=== PATIENT | male | born 2000 ===

== ENCOUNTER 2024-08-11 19:23 | Emergency (ER) | payer OTHER, SELFPAY ==
[2024-08-11 19:29] VITALS: BP 133/60; PULSE 106; RESP 18; TEMP 37.6; O2SAT 100; BMI 17.9
--- NOTE | 2024-08-11 19:34 | DI.RAD.S_ITS ---
PROCEDURE: XR KNEE RT 3V INDICATIONS: fall/pain/swelling/redness TECHNIQUE: 3 views of the knee were acquired. COMPARISON: None. FINDINGS: Bones: No fractures or dislocations. No suspicious bony lesions. Soft tissues: No suprapatellar joint effusion. There is a moderate amount of soft tissue swelling anterior to the patella and patellar tendon likely representing prepatellar bursitis. There is also a tiny punctate density adjacent to the lateral aspect of the patellofemoral compartment on the sunrise view which may represent artifact versus possible radiopaque soft tissue foreign body. No suspicious soft tissue calcifications. IMPRESSION: Right knee without acute fracture or dislocation. Moderate anterior right knee soft tissue swelling suggestive of prepatellar bursitis. Possible tiny punctate soft tissue radiopaque foreign body noted adjacent to the lateral margin of the lateral patellofemoral compartment. This is best seen on the sunrise view. Dictated by: Melvin Mazariegos M.D. on 08/11/2024 at 20:37 Approved by: Melvin Mazariegos M.D. on 08/11/2024 at 20:39
[2024-08-11] MEDS: IBUPROFEN 400 MG TABLET PO (19:51)
[2024-08-11] MEDS: ACETAMINOPHEN 325 MG TABLET PO (19:51)
[2024-08-11 20:07] LABS: Add Manual Diff / Slide Review NO; Basophils Absolute Auto 100 /uL (0-100); Basophils Percent Auto 0.4 % (0-2); Eosinophils Absolute Auto 100 /uL (0-450); Eosinophils Percent Auto 0.5 % (2-4); Hematocrit 42.9 % (41-53); Hemoglobin 14.8 g/dL (13.5-17.5); Lymphocytes Absolute Auto 2500 /uL (1100-4500); Lymphocytes Percent Auto 16.6 % (25-40); Mean Corpuscular HGB Conc 34.5 % (30-36); Monocytes Absolute Auto 1500 /uL (0-900); Monocytes Percent Auto 10.1 % (3-14); Neutrophils Absolute Auto 10700 /uL (1500-7000); Neutrophils Percent Auto 72.4 % (50-75); Platelet Count 251 X10^3/uL (150-400); Red Blood Cell Count 4.77 X10^6/uL (4.5-5.9); Red Cell Distribution Width 13.8 % (11.6-14.8); White Blood Cell Count 14.8 X10^3/uL (4.5-11.0)
[2024-08-11 20:28] LABS: Alanine Aminotransferase 21 IU/L (<50); Albumin 5.2 g/dL (3.5-5.0); Albumin Globulin Ratio 1.5 (1.0-2.8); Alkaline Phosphatase 76 U/L (38-126); Aspartate Aminotransferase 34 IU/L (17-59); BUN Creatinine Ratio 18.3 (6-22); Bilirubin Total 1.2 mg/dL (0.2-1.3); Blood Urea Nitrogen 15 mg/dL (9-20); C-Reactive Protein Quant 3.7 mg/dL (<1.0); Calcium 9.8 mg/dL (8.4-10.2); Carbon Dioxide 27 mmol/L (22-32); Chloride 101 mmol/L (98-107); Estimated Glomerular Filt Rate > 60 mL/min (>60); Globulin 3.4 g/dL (1.7-4.1); Glucose 95 mg/dL (70-99); HEMOLYSIS < 15 (0-50); Potassium 3.7 mmol/L (3.4-5.1); Sodium 139 mmol/L (137-145); Total Protein 8.6 g/dL (6.3-8.2)
[2024-08-11 20:32] LABS: Erythrocyte Sedimentation Rate 7 MM/HR (0-15)
[2024-08-11 22:30] VITALS: BP 116/71; PULSE 68; RESP 16; TEMP 37.2; O2SAT 100
[2024-08-11] MEDS: DOXYCYCLINE HYCLATE 100 MG TABLET PO (22:41)
--- NOTE | 2024-08-11 23:28 | ED_ITS ---
HPI - Extremity Injury (Lower) General Chief Complaint: Extremity Injury, Lower Stated Complaint: right knee injury Time Seen by Provider: 08/11/24 19:44 Source: patient Mode of arrival: Ambulatory History of Present Illness HPI Narrative: 23-year-old gentleman who works at [employer] and has been quite a bit of time physically on the ground on his knees. Comes in complaining of right knee pain and swelling. No fevers the pain is getting worse he is having difficulty doing any type of kneeling because of the pain. No other chronic medical issues or concerns at this time Related Data Previous Rx's ?Medication ?Instructions ?Recorded doxycycline hyclate 100 mg capsule 100 mg PO BID #20 c aps 08/11/24 Allergies Allergy/AdvReac Type Severity Reaction Status Date / Time No Known Drug Allergies Allergy Verified 08/11/24 19:29 Review of Systems Review of Systems Narrative: Pertinent positive and negative findings as per HPI Patient History Social History Smoking Status: Current every day smoker Smoking Status: Current every day smoker tobacco type: vaping Exam Initial Vital Signs Initial Vital Signs: Vital Signs Temperature 99.6 F 08/11/24 19:29 Pulse Rate 106 H 08/11/24 19:29 Respiratory Rate 18 08/11/24 19:29 Blood Pressure 133/60 08/11/24 19:29 Pulse Oximetry 100 08/11/24 19:29 Oxygen Delivery Method Room Air 08/11/24 19:29 General: Alert appropriate in no acute distress Respiratory: Able to speak in full sentences, no obvious respiratory distress Skin: No obvious rashes, warm and dry Neurologic: Grossly intact no obvious asymmetries or abnormalities Psych: appropriate insight and affect, cooperative Extremity: Right knee has unlimited and nontender range of motion in the knee joint itself no joint line tenderness. No calf pain or swelling. The skin over the patella is red and warm to the touch with developing cellulitis without obvious underlying abscess. He does have a suprapatellar effusion that is not particularly tender with palpation Course Orders Ordered: ED Orders 08/11/24 19:34 XR knee RT 3V Stat 08/11/24 20:00 CBC Auto Diff [Complete Blood Count AUTO DIFF] Stat CMP [Comprehensive Metabolic Panel] Stat CRP [C-Reactive Protein Quant] Stat ESR [Erythrocyte Sedimentation Rate] Stat Discontinued Medications Acetaminophen (Acetaminophen 325 Mg Tablet) 325 mg PO NOW ONE Stop: 08/11/24 19:47 Last Admin: 08/11/24 19:51 Dose: 325 mg Documented By: SAMM Doxycycline Hyclate (Doxycycline Hyclate 100 Mg Tablet) 100 mg PO NOW ONE Stop: 08/11/24 22:36 Last Admin: 08/11/24 22:41 Dose: 100 mg Documented By: LUISITO Ibuprofen (Ibuprofen 400 Mg Tablet) 400 mg PO NOW ONE Stop: 08/11/24 19:47 Last Admin: 08/11/24 19:51 Dose: 400 mg Documented By: SAMM Vital Signs Vital signs: Vital Signs - 8 hr 08/11/24 22:30 Temperature 98.9 F Pulse Rate 68 Respiratory Rate 16 Blood Pressure 116/71 Pulse Oximetry 100 Oxygen Delivery Method Room Air MDM - Extremity Injury (Lower) Lab Data 08/11/24 20:00 08/11/24 20:00 Labs: Lab Results 08/11/24 Range/Units 20:00 WBC 14.8 H (4.5-11.0) X10^3/uL RBC 4.77 (4.5-5.9) X10^6/uL Hgb 14.8 (13.5-17.5) g/dL Hct 42.9 (41-53) % MCV 90.0 (80-100) fL MCH 31.0 (26-34) PG MCHC 34.5 (30-36) % RDW 13.8 (11.6-14.8) % Plt Count 251 (150-400) X10^3/uL Neut % (Auto) 72.4 (50-75) % Lymph % (Auto) 16.6 L (25-40) % [place] % (Auto) 10.1 (3-14) % Eos % (Auto) 0.5 L (2-4) % Baso % (Auto) 0.4 (0-2) % Neut # (Auto) 84652 H (1097-5356) /uL Lymph # (Auto) 2500 (3173-7296) /uL [place] # (Auto) 1500 H (0-900) /uL Eos # (Auto) 100 (0-450) /uL Baso # (Auto) 100 (0-100) /uL ESR 7 (0-15) MM/HR Sodium 139 (137-145) mmol/L Potassium 3.7 (3.4-5.1) mmol/L Chloride 101 (98-107) mmol/L Carbon Dioxide 27 (22-32) mmol/L BUN 15 (9-20) mg/dL Creatinine 0.82 (0.66-1.25) mg/dL Estimated GFR > 60 (>60) mL/min BUN/Creatinine Ratio 18.3 (6-22) Glucose 95 (70-99) mg/dL Calcium 9.8 (8.4-10.2) mg/dL Total Bilirubin 1.2 (0.2-1.3) mg/dL AST 34 (17-59) IU/L ALT 21 (<50) IU/L Alkaline Phosphatase 76 (38-126) U/L C-Reactive Protein 3.7 H (<1.0) mg/dL Total Protein 8.6 H (6.3-8.2) g/dL Albumin 5.2 H (3.5-5.0) g/dL Globulin 3.4 (1.7-4.1) g/dL Albumin/Globulin Ratio 1.5 (1.0-2.8) MDM Narrative Medical decision making narrative: 23-year-old young man with right knee pain consistent with a prepatellar bursitis as well as developing superficial cellulitis. Based on clinical exam I do not suspect intra-articular infection and I do not believe he has an infected patellar bursa. White count is slightly elevated 14.8, no anemia Chemistries are reassuring C-reactive protein is elevated at 3.7 with sed rate low at 7 Findings reviewed with the patient. I believe 10 days of doxycycline is going to be appropriate for superficial cellulitis, did discuss potential complication of infected prepatellar bursal infection. Also reviewed signs and symptoms of what an intra-articular infection would look like. We discussed pain control, reasons to return to the emergency department, work prescription form saying that he can not do any work on his knees for a week but otherwise can do further activity this filled out along with his self-insured work insurance forms. Discharge Plan Departure Patient Disposition: Home Clinical Impression: Bursitis, prepatellar, right, Cellulitis of knee, right Instructions: DI for Cellulitis -- Adult, DI for Bursitis Activity Restrictions/Additional Instructions: Thank you for coming in today You do have cellulitis of the skin over your knee. You also have swelling and inflammation of the bursa, the sac of fluid that helps the skin move, over your kneecap. I do not think that the fluid collection over your kneecap is infected. You also do not have any evidence of infection spreading into the knee joint itself I have given you a prescription for doxycycline, please complete the entire course to treat the superficial cellulitis. The swelling over your kneecap, the bursitis, will improve by not continuing to irritated. I would suggest no kneeling at all for a week and your [employer] forms are filled out indicate that. I would also suggest investing and some quality knee pads to avoid this in the future If you feel like your symptoms are getting worse, your knee pain is worsening you are having more difficulty bending or flexing your knee you do need to be seen and re-evaluated Prescriptions: New doxycycline hyclate 100 mg capsule 100 mg PO BID Qty: 20 0RF Stand Alone Forms: Patient Portal/API
== END 2024-08-11 23:50 | disposition home or self-care (01) ==
PROVIDERS: Emergency Provider Emergency Medicine
DX: M70.41 Prepatellar bursitis, right knee (principal); L03.115 Cellulitis of right lower limb
CPT/HCPCS: 36415; 73562; 80053; 85025; 85651; 86140; 99283; 99284

== ENCOUNTER 2024-08-16 11:19 | Emergency (ER) | payer OTHER, SELFPAY ==
[2024-08-16] VITALS (13 sets, daily range): BP systolic 117–130; BP diastolic 59–72; PULSE 62–85; RESP 16–20; TEMP 36.6–37.1; O2SAT 98–100; BMI 17.9
--- NOTE | 2024-08-16 16:32 | PC.NURSE ---
Diffuse right knee swelling and redness. Pt states he was seen earlier in the week and was given a rx of doxycylcine. Pt able to walk. Pt reports redness is spreading beyond his knee. Bruisingnoted. Denies fevers. Pt reports increased difficulty bending knee.
--- NOTE | 2024-08-16 16:36 | ED_ITS ---
HPI - Extremity Injury (Lower) <Jasiel Hays PA-C - Last Filed: 08/16/24 19:08> General Chief Complaint: Extremity Injury, Lower Stated Complaint: right knee still bothering him Time Seen by Provider: 08/16/24 16:22 History of Present Illness HPI Narrative: 23-year-old male with no reported past medical history returns to the ED for right knee swelling and pain. Patient was seen in the ED on 08/11/2024, diagnosed with prepatellar bursitis, discharged home with p.o. doxycycline. Patient has been taking the medications as prescribed and has not seen an improvement. Patient states that the knee swelling and pain are worsening. Patient also endorses that the area of redness is spreading. Patient is able to extend and flex his knee. No numbness, tingling, weakness. No fever, chills, nausea, vomiting. Related Data Previous Rx's ?Medication ?Instructions ?Recorded doxycycline hyclate 100 mg capsule 100 mg PO BID #20 c aps 08/11/24 Allergies Allergy/AdvReac Type Severity Reaction Status Date / Time No Known Drug Allergies Allergy Verified 08/16/24 12:06 Review of Systems <Jasiel Hays PA-C - Last Filed: 08/16/24 19:08> Constitutional Constitutional: Denies chills, Denies fatigue, Denies fever(s), Denies frequent falls, Denies lethargy and Denies weakness Eyes Eyes: Denies change in vision, Denies eye discharge, Denies irritation and Denies loss of vision ENT Ears, Nose, Mouth, and Throat: Denies change in voice, Denies dizziness, Denies neck pain, Denies sore throat and Denies throat swelling Cardiovascular Cardiovascular: Denies chest pain, Denies irregular heart rhythm, Denies lightheadedness, Denies palpitations, Denies dyspnea, Denies dyspnea on exertion and Denies orthopnea Respiratory Respiratory: Denies cough, Denies dyspnea, Denies dyspnea on exertion and Denies wheezing Gastrointestinal Gastrointestinal: Denies abdominal pain, Denies change in bowel habits, Denies diarrhea, Denies nausea and Denies vomiting Musculoskeletal Musculoskeletal: Denies neck pain and Denies numbness Comments: Right knee redness, swelling, pain Integumentary/Breasts Skin/Breast: Denies pruritus, Denies erythema, Denies rash and Denies wounds Neurologic Neurologic: Denies behavioral changes, Denies confusion, Denies dizziness, Denies frequent falls, Denies loss of vision, Denies numbness and Denies weakness Psychiatric Psychiatric: Denies anxiety, Denies behavioral changes, Denies confusion, Denies depression, Denies homicidal ideation and Denies suicidal ideation Endocrine Endocrine: Denies fatigue, Denies flushing and Denies palpitations Hematologic/Lymphatic Hematologic/Lymphatic: Denies easy bruising Allergic/Immunologic Allergic/Immunologic: Denies urticaria, Denies throat swelling and Denies wheezing Patient History <Jasiel Hays PA-C - Last Filed: 08/16/24 19:08> Social History Smoking Status: Current every day smoker Smoking Status: Current every day smoker tobacco type: vaping Exam <Jasiel Hays PA-C - Last Filed: 08/16/24 19:08> Narrative Exam Narrative: Const General:?cooperative, healthy appearing and comfortable [facility] Head:?normal to inspection Ears:?hearing grossly normal bilaterally Nose:?external nose normal Face and sinus:?normal facial exam and sinuses nontender Mouth:?oral mucosae normal Throat:?posterior oropharynx normal Eyes General:?appearance normal, both eyes and all related structures Neck Neck:?normal visual inspection and no lymphadenopathy noted Resp Effort & Inspection:?normal respiratory effort Auscultation:?clear to auscultation bilaterally Cardio Rate:?regular rate Rhythm:?regular rhythm Neuro General:?patient alert, patient awake and patient oriented x3 Initial Vital Signs Initial Vital Signs: Vital Signs Temperature 98.7 F 08/16/24 12:03 Pulse Rate 85 08/16/24 12:03 Respiratory Rate 20 08/16/24 12:03 Blood Pressure 129/60 08/16/24 12:03 Pulse Oximetry 100 08/16/24 12:03 Oxygen Delivery Method Room Air 08/16/24 12:03 <Aline Hunter MD - Last Filed: 08/16/24 23:51> Initial Vital Signs Initial Vital Signs: Vital Signs Temperature 98.7 F 08/16/24 12:03 Pulse Rate 85 08/16/24 12:03 Respiratory Rate 20 08/16/24 12:03 Blood Pressure 129/60 08/16/24 12:03 Pulse Oximetry 100 08/16/24 12:03 Oxygen Delivery Method Room Air 08/16/24 12:03 Course <Jasiel Hays PA-C - Last Filed: 08/16/24 19:08> Orders Ordered: ED Orders 08/16/24 16:42 CT LE RT w con Stat CBC Auto Diff [Complete Blood Count AUTO DIFF] Stat CMP [Comprehensive Metabolic Panel] Stat CRP [C-Reactive Protein Quant] Stat ESR [Erythrocyte Sedimentation Rate] Stat PT [Prothrombin Time INR] Stat PTT [PTT Partial Thromboplastin [place]] Stat Procalcitonin Stat 08/16/24 17:10 Blood Culture Stat 08/16/24 21:48 Wound Culture and Gram Stain Stat 08/16/24 21:52 Cell Count w Diff Body Fluid Stat Discontinued Medications Ceftriaxone Sodium 2,000 mg/ (Sodium Chloride) 100 mls @ 200 mls/hr IV NOW ONE Stop: 08/16/24 21:38 Last Infusion: 08/16/24 22:42 Dose: Infused Documented By: Admin: 08/16/24 22:04 Dose: 200 mls/hr Documented By: EDMOND Vital Signs Vital signs: Vital Signs - 8 hr 08/16/24 19:02 08/16/24 19:23 08/16/24 19:23 Temperature 98 F Pulse Rate 76 82 Respiratory Rate 16 Blood Pressure 127/59 L 130/71 Pulse Oximetry 99 98 Oxygen Delivery Method Room Air 08/16/24 19:30 08/16/24 20:00 08/16/24 20:30 Temperature Pulse Rate 74 69 77 Respiratory Rate Blood Pressure Pulse Oximetry 99 99 98 Oxygen Delivery Method Room Air 08/16/24 21:00 08/16/24 21:30 08/16/24 22:00 Temperature Pulse Rate 73 62 64 Respiratory Rate Blood Pressure Pulse Oximetry 98 98 98 Oxygen Delivery Method Room Air 08/16/24 22:05 08/16/24 22:05 08/16/24 22:30 Temperature Pulse Rate 74 69 Respiratory Rate 16 Blood Pressure 122/72 Pulse Oximetry 99 99 Oxygen Delivery Method Room Air 08/16/24 23:00 08/16/24 23:00 08/16/24 23:30 Temperature Pulse Rate 66 80 Respiratory Rate Blood Pressure 117/65 Pulse Oximetry 98 100 Oxygen Delivery Method Room Air <Aline Hunter MD - Last Filed: 08/16/24 23:51> Orders Ordered: ED Orders 08/16/24 16:42 CT LE RT w con Stat CBC Auto Diff [Complete Blood Count AUTO DIFF] Stat CMP [Comprehensive Metabolic Panel] Stat CRP [C-Reactive Protein Quant] Stat ESR [Erythrocyte Sedimentation Rate] Stat PT [Prothrombin Time INR] Stat PTT [PTT Partial Thromboplastin [place]] Stat Procalcitonin Stat 08/16/24 17:10 Blood Culture Stat 08/16/24 21:48 Wound Culture and Gram Stain Stat 08/16/24 21:52 Cell Count w Diff Body Fluid Stat Discontinued Medications Ceftriaxone Sodium 2,000 mg/ (Sodium Chloride) 100 mls @ 200 mls/hr IV NOW ONE Stop: 08/16/24 21:38 Last Infusion: 08/16/24 22:42 Dose: Infused Documented By: Admin: 08/16/24 22:04 Dose: 200 mls/hr Documented By: EDMOND Vital Signs Vital signs: Vital Signs - 8 hr 08/16/24 19:02 08/16/24 19:23 08/16/24 19:23 Temperature 98 F Pulse Rate 76 82 Respiratory Rate 16 Blood Pressure 127/59 L 130/71 Pulse Oximetry 99 98 Oxygen Delivery Method Room Air 08/16/24 19:30 08/16/24 20:00 08/16/24 20:30 Temperature Pulse Rate 74 69 77 Respiratory Rate Blood Pressure Pulse Oximetry 99 99 98 Oxygen Delivery Method Room Air 08/16/24 21:00 08/16/24 21:30 08/16/24 22:00 Temperature Pulse Rate 73 62 64 Respiratory Rate Blood Pressure Pulse Oximetry 98 98 98 Oxygen Delivery Method Room Air 08/16/24 22:05 08/16/24 22:05 08/16/24 22:30 Temperature Pulse Rate 74 69 Respiratory Rate 16 Blood Pressure 122/72 Pulse Oximetry 99 99 Oxygen Delivery Method Room Air 08/16/24 23:00 08/16/24 23:00 08/16/24 23:30 Temperature Pulse Rate 66 80 Respiratory Rate Blood Pressure 117/65 Pulse Oximetry 98 100 Oxygen Delivery Method Room Air MDM - Extremity Injury (Lower) <Jasiel Hays PA-C - Last Filed: 08/16/24 19:08> Lab Data 08/16/24 16:42 08/16/24 16:42 Labs: Lab Results 06/17/25 06/17/25 Range/Units 16:42 21:52 WBC 10.0 (4.5-11.0) X10^3/uL RBC 4.86 (4.5-5.9) X10^6/uL Hgb 15.0 (13.5-17.5) g/dL Hct 44.1 (41-53) % MCV 90.6 (80-100) fL MCH 30.9 (26-34) PG MCHC 34.1 (30-36) % RDW 13.6 (11.6-14.8) % Plt Count 333 (150-400) X10^3/uL Neut % (Auto) 61.9 (50-75) % Lymph % (Auto) 30.0 (25-40) % [place] % (Auto) 6.2 (3-14) % Eos % (Auto) 1.1 L (2-4) % Baso % (Auto) 0.8 (0-2) % Neut # (Auto) 6200 (4770-3768) /uL Lymph # (Auto) 3000 (1279-6037) /uL [place] # (Auto) 600 (0-900) /uL Eos # (Auto) 100 (0-450) /uL Baso # (Auto) 100 (0-100) /uL ESR 29 H (0-15) MM/HR PT 12.4 (9.4-12.5) SECONDS INR 1.1 (0.9-1.3) APTT 37 H (25.1-36.5) SECONDS Sodium 141 (137-145) mmol/L Potassium 3.9 (3.4-5.1) mmol/L Chloride 99 (98-107) mmol/L Carbon Dioxide 29 (22-32) mmol/L BUN 12 (9-20) mg/dL Creatinine 0.85 (0.66-1.25) mg/dL Estimated GFR > 60 (>60) mL/min BUN/Creatinine Ratio 14.1 (6-22) Glucose 98 (70-99) mg/dL Calcium 10.0 (8.4-10.2) mg/dL Total Bilirubin 0.5 (0.2-1.3) mg/dL AST 34 (17-59) IU/L ALT 29 (<50) IU/L Alkaline Phosphatase 77 (38-126) U/L C-Reactive Protein 2.9 H (<1.0) mg/dL Total Protein 9.0 H (6.3-8.2) g/dL Albumin 5.1 H (3.5-5.0) g/dL Globulin 3.9 (1.7-4.1) g/dL Albumin/Globulin Ratio 1.3 (1.0-2.8) Procalcitonin 0.042 (<0.5) ng/mL Fluid Color Bloody Fluid Appearance Cloudy [place] RBC 72758 /uL Fld Tot Nucleated Cell 1963 /uL Fluid Neutrophils % 32 % Fluid Lymphocytes % 68 % Body Fluid Clot No clots present MDM Narrative Medical decision making narrative: 23-year-old male with no reported past medical history returns to the ED for right knee swelling and pain. It is reassuring that there is good range of motion. However, there still appears to be significant erythema, fluctuance and swelling in the prepatellar area with erythema spreading. Will obtain labs, blood cultures, CT lower extremity. Will consider tapping the bursa. Will reassess. White count within normal limits at 10. ESR elevated to 29. CRP elevated to 2.9. CT lower extremity shows a 5.4 x 1.2 x 4.7 cm prepatellar bursal fluid collection and bursitis. Mild surrounding subcutaneous fat stranding and skin thickening in anterior right knee suggestive of mild cellulitis. No abscess collection. No subcutaneous emphysema. No significant right knee joint effusion or calcified intra-articular loose bodies. No full-thickness right knee tendon or ligament rupture. No right knee fracture or dislocation. No suspicious bony lesions. No evidence of osteomyelitis. Care of this patient has been transferred to Dr. La Nena Alexander at this time. Medical records reviewed: Yes <Aline Hunter MD - Last Filed: 08/16/24 23:51> Lab Data Labs: Lab Results 08/16/24 08/16/24 Range/Units 16:42 21:52 WBC 10.0 (4.5-11.0) X10^3/uL RBC 4.86 (4.5-5.9) X10^6/uL Hgb 15.0 (13.5-17.5) g/dL Hct 44.1 (41-53) % MCV 90.6 (80-100) fL MCH 30.9 (26-34) PG MCHC 34.1 (30-36) % RDW 13.6 (11.6-14.8) % Plt Count 333 (150-400) X10^3/uL Neut % (Auto) 61.9 (50-75) % Lymph % (Auto) 30.0 (25-40) % [place] % (Auto) 6.2 (3-14) % Eos % (Auto) 1.1 L (2-4) % Baso % (Auto) 0.8 (0-2) % Neut # (Auto) 6200 (6315-4558) /uL Lymph # (Auto) 3000 (4876-1194) /uL [place] # (Auto) 600 (0-900) /uL Eos # (Auto) 100 (0-450) /uL Baso # (Auto) 100 (0-100) /uL ESR 29 H (0-15) MM/HR PT 12.4 (9.4-12.5) SECONDS INR 1.1 (0.9-1.3) APTT 37 H (25.1-36.5) SECONDS Sodium 141 (137-145) mmol/L Potassium 3.9 (3.4-5.1) mmol/L Chloride 99 (98-107) mmol/L Carbon Dioxide 29 (22-32) mmol/L BUN 12 (9-20) mg/dL Creatinine 0.85 (0.66-1.25) mg/dL Estimated GFR > 60 (>60) mL/min BUN/Creatinine Ratio 14.1 (6-22) Glucose 98 (70-99) mg/dL Calcium 10.0 (8.4-10.2) mg/dL Total Bilirubin 0.5 (0.2-1.3) mg/dL AST 34 (17-59) IU/L ALT 29 (<50) IU/L Alkaline Phosphatase 77 (38-126) U/L C-Reactive Protein 2.9 H (<1.0) mg/dL Total Protein 9.0 H (6.3-8.2) g/dL Albumin 5.1 H (3.5-5.0) g/dL Globulin 3.9 (1.7-4.1) g/dL Albumin/Globulin Ratio 1.3 (1.0-2.8) Procalcitonin 0.042 (<0.5) ng/mL Fluid Color Bloody Fluid Appearance [place] [address] /uL Fld Tot Nucleated Cell 1963 /uL Fluid Neutrophils % 32 % Fluid Lymphocytes % 68 % Body Fluid Clot No clots present MDM Narrative Medical decision making narrative: 23-year-old male with no reported past medical history returns to the ED for right knee swelling and pain. It is reassuring that there is good range of motion. However, there still appears to be significant erythema, fluctuance and swelling in the prepatellar area with erythema spreading. Will obtain labs, blood cultures, CT lower extremity. Will consider tapping the bursa. Will reassess. White count within normal limits at 10. ESR elevated to 29. CRP elevated to 2.9. CT lower extremity shows a 5.4 x 1.2 x 4.7 cm prepatellar bursal fluid collection and bursitis. Mild surrounding subcutaneous fat stranding and skin thickening in anterior right knee suggestive of mild cellulitis. No abscess collection. No subcutaneous emphysema. No significant right knee joint effusion or calcified intra-articular loose bodies. No full-thickness right knee tendon or ligament rupture. No right knee fracture or dislocation. No suspicious bony lesions. No evidence of osteomyelitis. Care of this patient has been transferred to Dr. La Nena Alexander at this time. Medical records reviewed: Yes Dr Hunter. Care is assumed, patient is re-examined. Actually his knee is slightly less red than it was with his initial visit. At work he has been having to do all of his usual duties with the exception of kneeling and I believe this is what is causing his extra pain. There is no tenderness along the joint line. Pain is definitely limited to the prepatellar bursa. Procedure: Right knee prepatellar bursal aspiration Areas thoroughly cleaned with chlorhexidine allowed to dry 1 cc of 1% lidocaine was injected to the lateral aspect of the prepatellar bursa 18 gauge needle is introduced into the bursa, I am able to get out approximately 4 cc of slightly thick mildly bloody synovial type fluid. It does not appear to be acutely purulent Sent to the lab for cell count, differential, culture Labs are reviewed. Actually seemed to be slightly improved from previous Fluid from the patellar tap is bloody and cloudy, 33179 red cells, 1963 nucleated cells 32% or neutrophils and 68% lymphocytes We will give him 2 g of ceftriaxone I am waiting for the knee effusion results to return. Declines any pain medication At this time I believe he is continuing to improve appropriately. We will ask him to continue with his doxycycline. We will recommend 4 days completely off work so that he is able to keep the knee elevated which I think will help significantly. Findings reviewed with the patient and he will be discharged home Discharge Plan Departure Patient Disposition: Home Clinical Impression: Bursitis, prepatellar, right, Cellulitis of knee, right Activity Restrictions/Additional Instructions: Thank you for coming back when you noticed you are having more pain. Workup today actually says that things to seemed to be healing fairly well. We did collect some fluid from the prepatellar bursa. It does not appear to be significantly infected and you do not need hospital admission for IV antibiotics. You do need to finish the doxycycline that you are prescribed previously and given that you are not improving I would also recommend off work for at least 5 additional days so that you are able to keep the leg elevated completely . Using 400 mg of ibuprofen (2 [id number] pills) and 1 Tylenol every 6 hours can be very helpful in controlling pain. If you find that you are getting worse or develop any new symptoms, please feel free to return to the emergency department for further evaluation. Prescriptions: No Action doxycycline hyclate 100 mg capsule 100 mg PO BID Qty: 20 0RF Stand Alone Forms: Patient Portal/API, Work Release Note
--- NOTE | 2024-08-16 16:42 | DI.CT.S_ITS ---
PROCEDURE: CT LE RT W CON INDICATIONS: ?septic bursitis TECHNIQUE: After the administration of intravenous contrast, 3 mm axial sections acquired of the right knee, with coronal and sagittal reformats. COMPARISON: None. FINDINGS: Image quality: Excellent. Bones: Right knee alignment is anatomic. There is no fracture or dislocation. No suspicious intraosseous lesion. Several benign-appearing sclerotic foci are seen scattered in medial and lateral femoral condyle. No cortical erosion or abnormal periosteal reaction is seen. No significant patellar subluxation. Soft tissues: There is a peripherally enhancing fluid collection within soft tissue along anterior aspect of patella and measures up to 5.4 x 1.2 x 4.7 cm in size. Significant adjacent subcutaneous fat stranding and mild overlying skin thickening is also noted. No significant right knee joint effusion. No calcified intra- articular loose bodies. Distal quadriceps tendon and patellar tendon are grossly intact. No ACL or PCL rupture. No abnormal soft tissue calcifications. IMPRESSION: 1. Finding likely represent 5.4 x 1.2 x 4.7 cm prepatellar bursal fluid collection and bursitis. Mild surrounding subcutaneous fat stranding and skin thickening in anterior right knee suggestive of mild cellulitis. No abscess collection. No subcutaneous emphysema. 2. No significant right knee joint effusion or calcified intra-articular loose bodies. No full-thickness right knee tendon or ligament rupture. 3. No right knee fracture or dislocation. No suspicious bony lesions. No evidence of osteomyelitis. Dictated by: Alexx Kamara M.D. on 08/16/2024 at 17:09 Approved by: Alexx Kamara M.D. on 08/16/2024 at 17:12
[2024-08-16 16:54] LABS: Add Manual Diff / Slide Review NO; Basophils Absolute Auto 100 /uL (0-100); Basophils Percent Auto 0.8 % (0-2); Eosinophils Absolute Auto 100 /uL (0-450); Eosinophils Percent Auto 1.1 % (2-4); Hematocrit 44.1 % (41-53); Lymphocytes Absolute Auto 3000 /uL (1100-4500); Mean Corpuscular HGB Conc 34.1 % (30-36); Mean Corpuscular Hemoglobin 30.9 PG (26-34); Mean Corpuscular Volume 90.6 fL (80-100); Monocytes Absolute Auto 600 /uL (0-900); Monocytes Percent Auto 6.2 % (3-14); Neutrophils Absolute Auto 6200 /uL (1500-7000); Neutrophils Percent Auto 61.9 % (50-75); Platelet Count 333 X10^3/uL (150-400); Red Blood Cell Count 4.86 X10^6/uL (4.5-5.9); Red Cell Distribution Width 13.6 % (11.6-14.8)
[2024-08-16 17:01] LABS: INR 1.1 (0.9-1.3); Prothrombin Time 12.4 SECONDS (9.4-12.5)
[2024-08-16 17:03] LABS: PTT Partial Thromboplastin Tim 37 SECONDS (25.1-36.5)
[2024-08-16 17:07] LABS: Alanine Aminotransferase 29 IU/L (<50); Albumin 5.1 g/dL (3.5-5.0); Albumin Globulin Ratio 1.3 (1.0-2.8); Alkaline Phosphatase 77 U/L (38-126); Aspartate Aminotransferase 34 IU/L (17-59); BUN Creatinine Ratio 14.1 (6-22); Bilirubin Total 0.5 mg/dL (0.2-1.3); Blood Urea Nitrogen 12 mg/dL (9-20); C-Reactive Protein Quant 2.9 mg/dL (<1.0); Carbon Dioxide 29 mmol/L (22-32); Chloride 99 mmol/L (98-107); Estimated Glomerular Filt Rate > 60 mL/min (>60); Globulin 3.9 g/dL (1.7-4.1); Glucose 98 mg/dL (70-99); HEMOLYSIS < 15 (0-50); Potassium 3.9 mmol/L (3.4-5.1); Sodium 141 mmol/L (137-145)
[2024-08-16 17:16] LABS: Erythrocyte Sedimentation Rate 29 MM/HR (0-15)
[2024-08-16 17:21] LABS: Procalcitonin 0.042 ng/mL (<0.5)
[2024-08-16] MEDS: cefTRIAXone 2,000 MG in SODIUM CHLORIDE 0.9% 100 ML 200 MG IV (22:04)
[2024-08-16 22:31] LABS: Body Fluid Red Blood Cells 60312 /uL; Body Fluid Tot Nucleated Cells 1963 /uL
[2024-08-16 22:37] LABS: Body Fluid Appearance CLOUDY; Body Fluid Clotted? NO CLOTS PRESENT; Body Fluid Color BLOODY; Lymphocytes Body Fluid 68 %; Neutrophils Body Fluid 32 %
[2024-08-17] VITALS: BP 118/66; O2SAT 99
== END 2024-08-17 00:04 | disposition home or self-care (01) ==
PROVIDERS: Emergency Medicine; Emergency Provider Student in an Organized Health Care Education/Training Program
DX: M70.41 Prepatellar bursitis, right knee (principal); L03.115 Cellulitis of right lower limb
CPT/HCPCS: 36415; 73701; 80053; 84145; 85025; 85610; 85651; 85730; 86140; 87040; 87070; 87075; 87205; 89051; 96365; 99283; 99284; J0696; Q9967